=== PATIENT | female | born 1970 | race Caucasian/White ===

== ENCOUNTER → 2020-09-06 15:50 | Outpatient (CLI) | payer OTHER, SELFPAY ==
--- NOTE | ~2020-09-06 | MM_ITS ---
EXAMINATION: MM screening [facility] BI w carrie HISTORY: Screening mammogram TECHNIQUE: Craniocaudal and mediolateral oblique 3-D tomosynthesis images were obtained and synthetic 2-D images were generated. CAD analysis was submitted and interpreted. COMPARISON: 07/08/2018, 12/19/2017, 08/29/2016, 06/27/2015 BREAST PARENCHYMAL COMPOSITION: There are scattered areas of fibroglandular density. FINDINGS: RIGHT BREAST: An asymmetry is present in the anterior third of the breast in line with the nipple axi s on the mediolateral oblique view. LEFT BREAST: An asymmetry is seen in the posterior third of the slightly outer breast on the cranioca udal view. IMPRESSION: 1. Bilateral breast asymmetries. 2. Additional mammographic views and possible breast ultrasound are recommended. BI-RADS Category 0: Incomplete: Needs additional imaging evaluation. Reviewed, dictated and finalized at location A. ETIC TECHNICIAN REGISTERED IMPRESSION: 1. Bilateral breast asymmetries. 2. Additional mammographic views and possible breast ultrasound are recommended . BI-RADS Category 0: Incomplete: Needs additional imaging evaluation.
== END ==
PROVIDERS: PCP Family Medicine; Visit Provider Nurse Practitioner
DX: Z12.31 Encounter for screening mammogram for malignant neoplasm of breast (principal); R92.8 Other abnormal and inconclusive findings on diagnostic imaging of breast
CPT/HCPCS: 77063; 77067

== ENCOUNTER → 2020-10-05 09:09 | Outpatient (CLI) | payer OTHER, SELFPAY ==
--- NOTE | ~2020-10-05 | MM_ITS ---
EXAMINATION: MM diagnostic mammo BI HISTORY: Bilateral breast asymmetries on screening mammogram TECHNIQUE: Additional 3-D tomosynthesis images of the breasts were performed and synthetic 2-D images were generated. CAD analysis was submitted and interpreted. COMPARISON: 09/06/2020, 07/08/2018, 12/19/2017, 08/29/2016 FINDINGS: No persistent asymmetry is identified with spot compression views of the breasts. There is no suspicious mass, calcification, or architectural distortion. IMPRESSION: 1. No mammographic evidence of malignancy. 2. Recommend routine screening mammography in one year. BI-RADS Category 1: Negative Reviewed, dictated and finalized at location A. FINISHER
== END ==
PROVIDERS: PCP Family Medicine; Visit Provider Obstetrics & Gynecology Gynecology
DX: R92.8 Other abnormal and inconclusive findings on diagnostic imaging of breast (principal)
CPT/HCPCS: 77066

== ENCOUNTER → 2022-02-26 08:54 | Outpatient (CLI) | payer OTHER, SELFPAY ==
--- NOTE | ~2022-02-26 | MM_ITS ---
EXAMINATION: MM screening [facility] BI w carrie HISTORY: Screening TECHNIQUE: Craniocaudal and mediolateral oblique 3-D tomosynthesis images were obtained and synthetic 2-D images were generated. CAD analysis was submitted and interpreted. COMPARISON: Comparison to multiple prior studies sequentially, with oldest reviewed study dated 05/2015. BREAST PARENCHYMAL COMPOSITION: There are scattered areas of fibroglandular density. FINDINGS: There is no evidence of suspicious mass, calcification, or architectural distortion to sugg est malignancy in either breast. There has been no suspicious interval change. IMPRESSION: 1. No mammographic evidence of malignancy. 2. Recommend routine screening mammography in one year. BI-RADS Category 1: Negative Reviewed, dictated and finalized at location A.
== END ==
PROVIDERS: PCP Family Medicine; Visit Provider Obstetrics & Gynecology Gynecology
DX: Z12.31 Encounter for screening mammogram for malignant neoplasm of breast (principal)
CPT/HCPCS: 77063; 77067

== ENCOUNTER → 2023-03-03 09:01 | Outpatient (CLI) | payer OTHER, SELFPAY ==
--- NOTE | ~2023-03-03 | CT_ITS ---
EXAMINATION: CT lung screening DATE: 03/03/2023 09:36 INDICATION: Personal history of nicotine dependence TECHNIQUE: Computed tomography (CT) of the chest was performed without intravenous contrast. The dose -length product was 67.02 mGy-cm. Automated exposure control and iterative reconstruction technique w ere employed. COMPARISON: None FINDINGS: Heart size is normal. No significant pleural or pericardial effusion. No thoracic lymphaden opathy. There are upper abdomen is unremarkable. No endobronchial lesions. No pneumothorax. No endobr onchial lesions. No focal airspace consolidation. No suspicious pulmonary nodules or masses. IMPRESSION: 1. Lung-RADS category 1: Negative. Continue annual screening with noncontrast low-dose chest CT in 12 months. Reviewed, dictated and finalized at location B. IMPRESSION: 1. Lung-RADS category 1: Negative. Continue annual screening with noncontrast l ow-dose chest CT in 12 months.
--- NOTE | ~2023-03-03 | XR_ITS ---
EXAMINATION: XR_[id number]_CR DATE: 03/03/2023 09:38 INDICATION: Right knee pain. TECHNIQUE: 2 views of right knee standing were obtained. COMPARISON: None. FINDINGS: Bone alignment is normal. No fracture. There is mild osteoarthritis of medial and lateral c ompartments and moderate osteoarthritis of patellofemoral compartment. There is a small knee joint ef fusion. IMPRESSION: 1. Moderate right knee osteoarthritis. 2. Small right knee joint effusion. Reviewed, dictated and finalized at location A.
--- NOTE | ~2023-03-03 | XR_ITS ---
EXAMINATION: [id number]_[id number]_CR DATE: 03/03/2023 09:38 INDICATION: Left knee pain. TECHNIQUE: 2 views of left knee standing were obtained. COMPARISON: None. FINDINGS: Bone alignment is normal. No fracture. There is mild osteoarthritis of medial and lateral c ompartments and moderate osteoarthritis of patellofemoral compartment. No knee joint effusion. IMPRESSION: 1. Moderate left knee osteoarthritis. Reviewed, dictated and finalized at location A.
== END ==
PROVIDERS: PCP Family Medicine; Visit Provider Family Medicine
DX: M25.461 Effusion, right knee (principal); M17.0 Bilateral primary osteoarthritis of knee; Z87.891 Personal history of nicotine dependence
CPT/HCPCS: 71271; 73560

== ENCOUNTER → 2023-03-03 09:06 | Outpatient (CLI) | payer OTHER, SELFPAY ==
--- NOTE | ~2023-03-03 | MM_ITS ---
EXAMINATION: MM screening [facility] BI w carrie HISTORY: Screening mammogram TECHNIQUE: Craniocaudal and mediolateral oblique 3-D tomosynthesis images were obtained and synthetic 2-D images were generated. CAD analysis was submitted and interpreted. COMPARISON: 02/26/2022, 10/05/2020, 09/06/2020, 07/08/2018, 12/19/2017 BREAST PARENCHYMAL COMPOSITION: There are scattered areas of fibroglandular density. FINDINGS: No suspicious mass, calcification, or architectural distortion are identified in either rodger ast to suggest malignancy. There has been no suspicious interval change. IMPRESSION: 1. No mammographic evidence of malignancy. 2. Recommend routine screening mammography in one year. BI-RADS Category 1: Negative Reviewed, dictated and finalized at location A.
== END ==
PROVIDERS: PCP Obstetrics & Gynecology Gynecology; Visit Provider Obstetrics & Gynecology Gynecology
DX: Z12.31 Encounter for screening mammogram for malignant neoplasm of breast (principal)
CPT/HCPCS: 77063; 77067

== ENCOUNTER 2023-09-24 13:08 | Outpatient (CLI) | payer OTHER, SELFPAY ==
[2023-09-24 14:36] LABS: Influenza A QL RT-PCR Positive (Negative); Influenza B QL RT-PCR Negative (Negative); SARS-CoV-2 RNA PCR Negative (Negative)
== END 2023-09-24 13:09 | disposition home or self-care (01) ==
PROVIDERS: PCP Family Medicine; Visit Provider Physician Assistant
DX: R05.9 Cough, unspecified (principal); Z20.822 Contact with and (suspected) exposure to COVID-19
CPT/HCPCS: 87636

== ENCOUNTER 2024-01-28 05:49 | Day surgery (SDC) | payer OTHER, SELFPAY ==
[2024-01-05 13:20] VITALS: BMI 28.8
[2024-01-28 06:17] VITALS: BMI 28.5
[2024-01-28 06:19] VITALS: BP 118/88; PULSE 75; RESP 16; TEMP 36.8; O2SAT 99
[2024-01-28] MEDS: LACTATED RINGERS 1,000 ML 150 ML IV CONT (07:00)
--- NOTE | 2024-01-28 07:02 | WPDANESEPPF ---
Anes - Initial Pre Proc Eval Procedure: Operation Date: 01/28/24 07:30 Proposed Procedures p Colonoscopy - Osmel Ruiz MD Date/Time: 01/28/24 07:02 Surgeon: Osmel Ruiz MD Pre Op Diagnosis: Other Fecal Abnormailities, Neoplasm Screening Patient Data Age: 53 Gender: F Height: 1.63 m Weight: 75.3 kg Last Vital Signs Temp 36.8 C 01/28/24 06:19 Pulse 75 01/28/24 06:19 Resp 16 01/28/24 06:19 BP 118/88 01/28/24 06:19 Pulse Ox 99 01/28/24 06:19 O2 Del Method Room Air 01/28/24 06:19 Allergies Allergy/AdvReac Type Severity Reaction Status Date / Time No Known Allergies Allergy Verified 01/28/24 06:10 Home Medications Medication Instructions Recorded Confirmed Type valacyclovir 1 gram tablet See Rx Instructions .Route 06/19/22 01/28/24 Rx (Valtrex) .COMPLEX #28 tabs lisinopril 10 mg tablet 10 mg PO DAILY #90 tabs 02/10/23 01/28/24 Rx varenicline 1 mg tablet (Chantix 1 mg PO BID #56 tabs 08/26/23 01/28/24 Rx Continuing Month Box) albuterol sulfate 90 mcg/actuation 1 inh inhalation Q4H PRN shortness 09/26/23 01/28/24 Rx aerosol inhaler of breath or wheezing #6.7 grams bupropion HCl 150 mg 24 hr tablet, 150 mg PO QAM #90 tabs 11/25/23 01/28/24 Rx extended release (Wellbutrin XL) B Complex 1 tablet PO DIRECTED 01/13/24 01/28/24 History Glucosamine 1 tablet PO DIRECTED 01/13/24 01/28/24 History Vitamin D3 1 tab-cap PO DIRECTED 01/13/24 01/28/24 History magnesium 1 tablet PO DIRECTED 01/13/24 01/28/24 History Patient hx anesthesia problems: none Family hx anesthesia problems: none Results Review: All pre-operative results and documents have been reviewed as part of the pre-operative evaluation. [facility] Past Medical History Medical History Cold sore Essential hypertension REJI (generalized anxiety disorder) H/O malignant melanoma of skin Smoking Wellness examination Family History Family History Father Hypertension Diabetes mellitus Mother Hypertension Social History Social History Smoking status: Current some day smoker Tobacco type: cigarettes Additional smoking assessment comments: states socially, maybe 3 per week Alcohol intake: current Alcohol use details: 2 glasses of wine per day Substance use: never Substance use type: does not use Living arrangements: with family Occupation/Education: occupation Gender identity (if verbalized by the patient): Female Sexual Orientation (if Verbalized by the Patient): Straight or Heterosexual Spiritual care concerns: No Anes - Eval Final PreProcedure Day of Procedure 01/28/24 07:02 Patient weight: overweight Heart: regular rate and rhythm Lungs: clear to auscultation Airway: Mallampati scale class II Neurological: alert and oriented Last oral intake: >/= 8 hours ASA classification: III Emergent: no Anesthetic plan: proceed Anesthesia type and monitoring: general GIVS and standard monitoring Results Review: All pre-operative results and documents have been reviewed as part of the pre-operative evaluation. Informed Consent: The patient's anesthetic plan and its attendant risks and benefits were discussed with the patient/family/POA. Questions were solicited and answers provided to the satisfaction of the patient/family/POA.
--- NOTE | 2024-01-28 07:13 | PM.HPGS ---
History of Present Illness History of Present Illness Consent: Risks, benefits, and alternatives have been discussed and questions answered. Patient agrees to proceed with procedure. Chief complaint: positive cologuard test Narrative: John Parsons is a 53 year old female presents for screening colonoscopy. Patient's current weight appetite and bowel movements are normal. Patient denies abdominal pain. She has had no bleeding. Family history is significant her mother, father and her sister have had colon polyps. Review of Systems Review of Systems: Review of systems noncontributory. [facility] Past Medical History Medical History Cold sore Essential hypertension REJI (generalized anxiety disorder) H/O malignant melanoma of skin Smoking Wellness examination Family History Family History Father Hypertension Diabetes mellitus Mother Hypertension Social History Social History Smoking status: Current some day smoker Tobacco type: cigarettes Additional smoking assessment comments: states socially, maybe 3 per week Alcohol intake: current Alcohol use details: 2 glasses of wine per day Substance use: never Substance use type: does not use Living arrangements: with family Occupation/Education: occupation Gender identity (if verbalized by the patient): Female Sexual Orientation (if Verbalized by the Patient): Straight or Heterosexual Spiritual care concerns: No Meds Home Medications and Allergies Home Medications Medication Instructions Recorded Confirmed Type valacyclovir 1 gram tablet See Rx Instructions .Route 06/19/22 01/28/24 Rx (Valtrex) .COMPLEX #28 tabs lisinopril 10 mg tablet 10 mg PO DAILY #90 tabs 02/10/23 01/28/24 Rx varenicline 1 mg tablet (Chantix 1 mg PO BID #56 tabs 08/26/23 01/28/24 Rx Continuing Month Box) albuterol sulfate 90 mcg/actuation 1 inh inhalation Q4H PRN shortness 09/26/23 01/28/24 Rx aerosol inhaler of breath or wheezing #6.7 grams bupropion HCl 150 mg 24 hr tablet, 150 mg PO QAM #90 tabs 11/25/23 01/28/24 Rx extended release (Wellbutrin XL) B Complex 1 tablet PO DIRECTED 01/13/24 01/28/24 History Glucosamine 1 tablet PO DIRECTED 01/13/24 01/28/24 History Vitamin D3 1 tab-cap PO DIRECTED 01/13/24 01/28/24 History magnesium 1 tablet PO DIRECTED 01/13/24 01/28/24 History Allergies Allergy/AdvReac Type Severity Reaction Status Date / Time No Known Allergies Allergy Verified 01/28/24 06:10 Vital Signs Vital Signs - 24 hr 01/28/24 06:19 Temperature 98.2 F Pulse Rate 75 Respiratory Rate 16 Blood Pressure 118/88 Pulse Oximetry 99 Oxygen Delivery Room Air Exam Narrative: Physical exam reveals patient to be alert. Vital signs stable. HEENT exam is unremarkable. Patient is anicteric. Lungs are clear to auscultation and percussion. Heart is without murmur or extra sounds. Abdomen bowel sounds are present soft nontender with no organomegaly. Digital external rectal exam is normal. Assessment and Plan Assessment and plan (1) Positive colorectal cancer screening using Cologuard test: Code(s): R19.5 - Other fecal abnormalities Status: Acute Assessment and Plan: Patient found to have positive Cologuard test. For this reason screening colonoscopy has been arranged. Further recommendations may be given after endoscopy. (2) Family history of colonic polyps: Code(s): Z83.719 - Family history of colon polyps, unspecified Status: Acute Assessment and Plan: Patient reports that her mother and father and sister all have had colon polyps. Plan for surveillance colonoscopy at 5 year intervals.
[2024-01-28 07:49] VITALS: BP 110/79; PULSE 71; RESP 16; O2SAT 99
[2024-01-28 07:59] VITALS: BP 118/84; PULSE 69; RESP 16; O2SAT 100
[2024-01-28 08:09] VITALS: BP 119/82; PULSE 60; RESP 16; O2SAT 100
--- NOTE | 2024-01-28 12:27 | WPDANESPN ---
Anes - Prog Note Post-Op Date/Time: 01/28/24 12:27 Cardiovascular status: normal Respiratory status: normal Airway patency: baseline Mental status: baseline Post-Op hydration status: normal Vital Signs: Last Vital Signs Temp 36.8 C 01/28/24 06:19 Pulse 60 01/28/24 08:09 Resp 16 01/28/24 08:09 BP 119/82 01/28/24 08:09 Pulse Ox 100 01/28/24 08:09 O2 Del Method Room Air 01/28/24 08:09 Pain Score (VAS): 0 I/O: Intake & Output 01/27/24 01/28/24 01/28/24 23:59 07:59 15:59 Intake Total 50 Balance 50 Post-procedural complaints: none Patient Feedback: Patient satisfied with anesthetic care. Other Findings: Patient vital signs back to baseline. Patient denies nausea and vomiting. Patient's pain under control. Patient OK for discharge.
== END 2024-01-28 08:15 | disposition home or self-care (01) ==
PROVIDERS: PCP Family Medicine; Visit Provider Internal Medicine Gastroenterology
PROC: 0DJD8ZZ Inspection of Lower Intestinal Tract, Via Natural or Artificial Opening Endoscopic (ICD-10-PCS; CPT 45378; principal; 2024-01-28 07:30)
DX: Z12.11 Encounter for screening for malignant neoplasm of colon (principal); D12.5 Benign neoplasm of sigmoid colon; K64.8 Other hemorrhoids
CPT/HCPCS: 45385

== ENCOUNTER 2024-01-28 07:00 | Outpatient (NON) | payer OTHER, SELFPAY | END 2024-01-28 07:01 | disposition home or self-care (01) | PROVIDERS: PCP Family Medicine; Visit Provider Internal Medicine Gastroenterology | DX: R19.5 Other fecal abnormalities (principal) | CPT/HCPCS: 88305 ==

== ENCOUNTER 2024-03-09 15:37 | Outpatient (CLI) | payer OTHER, SELFPAY ==
--- NOTE | ~2024-03-09 | CT_ITS ---
EXAMINATION: CT lung screening DATE: 03/09/2024 15:49 INDICATION: Z87.891 - Personal history of nicotine dependence TECHNIQUE: Computed tomography (CT) of the chest was performed without intravenous contrast. Addition al 3D reconstructions utilizing coronal maximum intensity projection (MIP) were performed. Automated exposure control and iterative reconstruction technique were employed. The dose-length product was 70 .55 mGy-cm. COMPARISON: 03/03/2023 FINDINGS: No pulmonary nodules, endobronchial lesions, pneumonia, pulmonary edema or other pulmonary infiltrate s. Heart size normal. No pericardial or pleural effusion. Thoracic aorta is normal in caliber. No pat hologically enlarged thoracic lymphadenopathy. Visualized upper abdomen is unremarkable. Mild thoraci c spondylosis. IMPRESSION: 1. Lung-RADS category 1: Negative. Continue annual screening with noncontrast low-dose chest CT in 12 months. Reviewed, dictated and finalized at location A. IMPRESSION: 1. Lung-RADS category 1: Negative. Continue annual screening with noncontrast l ow-dose chest CT in 12 months.
== END 2024-03-09 15:38 ==
LOC: MICIMG 15:38
PROVIDERS: PCP Family Medicine; Visit Provider Family Medicine
DX: Z12.2 Encounter for screening for malignant neoplasm of respiratory organs (principal); Z87.891 Personal history of nicotine dependence
CPT/HCPCS: 71271

== ENCOUNTER 2024-09-23 14:41 | Outpatient (CLI) | payer OTHER, SELFPAY ==
--- NOTE | ~2024-09-23 | MM_ITS ---
EXAMINATION: MM screening [facility] w car[facility] HISTORY: Screening TECHNIQUE: Craniocaudal and mediolateral oblique 3-D tomosynthesis images were obtained and synthetic 2-D images were generated. CAD analysis was submitted and interpreted. COMPARISON: Comparison to multiple prior studies sequentially, with oldest reviewed study dated 11/2017. BREAST PARENCHYMAL COMPOSITION: Not dense: There are scattered areas of fibroglandular density. FINDINGS: There is no evidence of suspicious mass, calcification, or architectural distortion to sugg est malignancy in either breast. There has been no suspicious interval change. IMPRESSION: 1. No mammographic evidence of malignancy. 2. Recommend routine screening mammography in one year. BI-RADS Category 1: Negative Reviewed, dictated and finalized at location B. ATOLOGY TEACHER
== END 2024-09-23 14:42 | disposition home or self-care (01) ==
LOC: MICIMG 14:42
PROVIDERS: PCP Obstetrics & Gynecology Gynecology; Visit Provider Obstetrics & Gynecology Gynecology
DX: Z12.31 Encounter for screening mammogram for malignant neoplasm of breast (principal)
CPT/HCPCS: 77063; 77067

== ENCOUNTER 2025-03-10 08:44 | Outpatient (CLI) | payer OTHER, SELFPAY ==
--- NOTE | ~2025-03-10 | CT_ITS ---
CT Scan of the Chest without Contrast: Clinical Indication: Lung cancer screening, nicotine dependence Technique: Contiguous sections were acquired throughout the chest without intravenous contrast. Dose reduction technique was used on this scan by utilizing automated exposure control and iterative recon struction technique. The dose-length product (DLP) was 75.75 mGy-cm. COMPARISON: 03/09/2024 Findings: There is no evidence of any significant mediastinal, hilar or axillary lymphadenopathy. The mediastin al soft tissues appear normal. There is no evidence of pleural or pericardial effusion. The lungs are clear. No pulmonary nodules or infiltrates are noted. Images through the upper abdomen reveal no abnormalities. Impression: Lung RADS 1: Negative. 12 month follow-up screening CT advised. Reviewed, dictated and finalized at location . Impression: Lung RADS 1: Negative. 12 month follow-up screening CT advised.
== END 2025-03-10 08:45 | disposition home or self-care (01) ==
LOC: MICIMG 08:45
PROVIDERS: PCP Family Medicine; Visit Provider Family Medicine
DX: Z12.2 Encounter for screening for malignant neoplasm of respiratory organs (principal); Z87.891 Personal history of nicotine dependence
CPT/HCPCS: 71271